=== PATIENT | female | born 1965 | race Caucasian/White ===

== ENCOUNTER 2016-07-21 12:57 | Day surgery (SDC) | payer MEDICAID ==
[2016-07-21] MEDS ORDERED: fentaNYL 100 MCG/2 ML INJ ONE (14:47)
[2016-07-21] MEDS ORDERED: MIDAZOLAM 2 MG/2 ML VIAL ONE (14:47)
[2016-07-21] MEDS ORDERED: DEPO METHYLPREDNISOLONE 80 MG/ML SDV ONE (15:25)
[2016-07-21] MEDS ORDERED: DEPO METHYLPREDNISOLONE 40 MG/ML SDV ONE (15:25)
[2016-07-21] MEDS ORDERED: TRIAMCINOLONE ACETONIDE 200 MG/5 ML MDV IM ONE (15:25)
[2016-07-21] MEDS ORDERED: IOPAMIDOL (ISOVUE-M 300) 15 ML VIAL IV ONE (15:25)
[2016-07-21] MEDS ORDERED: BUPIVACAINE 0.5% 30 ML SDV ONE (15:26)
--- NOTE | 2016-07-21 19:10 | IR ---
L4-L5 Bilateral Facet Injection L4-L5 Epidural Steroid Injection Indication: Low back pain radiating to the back of the knees. Previous facet injections helped the patient. Informed Consent: Obtained from the patient. Risks and benefits were discussed. Cross Cutting Measure: Patient's current list of medications including all known prescriptions, over -the-counters, herbals, and vitamin/mineral/dietary supplements are reviewed. Medications' name, dos age, frequency, and route of administration are confirmed. Patient is a non-smoker. Prophylactic Antibiotic: Cefazolin was not ordered and administered for antimicrobial prophylaxis be cause it was not medically necessary. VTE Prophylaxis: There is not an order for VTE prophylaxis to be given within 24 hours of the proced ure end time. VTE prophylaxis was not given because it was not medically necessary. Technique: Patient is placed in prone position. A "timeout" procedure was performed to identify the correct patient and the correct procedure. 1% Xylocaine was used for local anesthetic. All element s of maximal sterile barrier technique, including cap, mask, sterile gown, sterile gloves, large ster ile sheet, hand hygiene, and 2% chlorhexidine for cutaneous antisepsis, followed. Ultrasound evaluation of potential access site was performed. A permanent recording was created for the patient's record. When ultrasound is used, sterile gel and probe covers are used. First, a 22-gauge spinal needle is inserted into L4-L5 facets, with contrast injection confirming sat isfactory placement of the needles. This is followed by administration of a total of 120 mg of Depo- Medrol, bupivacaine, and lidocaine mixture. Next, a needle was inserted into the L4-L5 interlaminar space, with contrast injection showing the in terlaminar epidural space, but also a paraspinal draining vein. Needle was pulled back some, and steroid and lidocaine mixture was demonstrated. Additional 40 mg of steroid is delivered in the epidural space. The patient tolerated the procedure well. Medication: 125 mcg fentanyl, 2.5 mg Versed, [id number]. Fluoroscopy: 2.5 minutes, 4 images Impression: 1. Bilateral L4-L5 facet joint injection. 2. L4-L5 epidural steroid injection. 3. A total of 160 mg of steroid was delivered today.
== END 2016-07-21 16:05 | disposition home or self-care (01) ==
LOC: FIMAGING 12:57
PROVIDERS: ATTEND Neurological Surgery
PROC: 3E0S33Z Introduction of Anti-inflammatory into Epidural Space, Percutaneous Approach (ICD-10-PCS; principal; 2016-07-21 15:35)
PROC: 3E0S3BZ Introduction of Anesthetic Agent into Epidural Space, Percutaneous Approach (ICD-10-PCS; principal; 2016-07-21 15:35)
DX: M43.16 Spondylolisthesis, lumbar region (principal)
CPT/HCPCS: J1020; J2250; J3010; J3301; Q9967